=== PATIENT | male | born 1990 | race Caucasian/White ===

== ENCOUNTER 2021-10-07 19:00 | Emergency (ER) | payer BC ==
[~2021-10-07] VITALS: Ht 172.7 cm; Wt 90.8 kg
[2021-10-07 19:16] VITALS: BP 121/84
--- NOTE | 2021-10-07 19:42 | RAD ---
Exam: Chest one view INDICATION: Shortness of breath TECHNIQUE: Frontal view of the chest Comparisons: None FINDINGS: The cardiomediastinal silhouette and pulmonary vessels are within normal limits. The lung and pleural spaces are clear. IMPRESSION: No acute cardiopulmonary process. Electronically signed by: Emelyn Kumari MD (10/07/2021 7:40 PM) [facility]
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
[2021-10-07 20:35] LABS: BASO # 0.1 x10^3/uL (0.0-0.2); BASO % 1 % (0-3); EOS # 0.6 x10^3/uL (0.0-0.7); EOS % 8 % (0-3); HEMATOCRIT 45.4 % (39.0-53.0); HEMOGLOBIN 15.5 g/dL (13.0-17.5); LYMPH # 1.9 x10^3/uL (1.0-4.8); LYMPH % 26 % (24-48); MEAN CORPUSCULAR HEMOGLOBIN 32 pg (25-35); MEAN CORPUSCULAR HGB CONC 34 g/dL (31-37); MEAN CORPUSCULAR VOLUME 92 fL (79-100); MONO # 0.6 x10^3/uL (0.0-1.1); MONO % 8 % (0-9); NEUT # 4.3 x10^3uL (1.8-7.7); NEUT % 58 % (31-73); PLATELET COUNT 275 x10^3/uL (140-400); RED BLOOD COUNT 4.91 x10^6/uL (4.30-5.70); WHITE BLOOD COUNT 7.5 x10^3/uL (4.0-11.0)
[2021-10-07 20:46] LABS: CALCIUM 8.9 mg/dL (8.5-10.1); GFR 87.2; POTASSIUM 4.5 mmol/L (3.5-5.1)
[2021-10-07 20:51] LABS: ALBUMIN 4.1 g/dL (3.4-5.0); ALBUMIN/GLOBULIN RATIO 1.3 (1.0-1.7); TOTAL BILIRUBIN 0.3 mg/dL (0.2-1.0); TOTAL PROTEIN 7.2 g/dL (6.4-8.2)
--- NOTE | 2021-10-07 22:53 | EKG ---
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
== END 2021-10-07 22:20 | disposition home or self-care (01) ==
LOC: ER 19:00
DX: E06.9 Thyroiditis, unspecified (principal)
CPT/HCPCS: 36415; 71045; 80053; 84484; 85025; 93005; 99285